=== PATIENT | female | born 1980 | race Caucasian/White ===

== ENCOUNTER → 2020-03-07 12:06 | Outpatient (BNVA) | payer OTHER, SELFPAY | PROVIDERS: Family Provider Family Medicine; Visit Provider Nurse Practitioner Family | DX: Z20.828 Contact with and (suspected) exposure to other viral communicable diseases (principal) | CPT/HCPCS: 87635 ==

== ENCOUNTER 2020-07-11 15:42 | Emergency (ER) | payer OTHER, SELFPAY ==
[2020-07-11 15:56] VITALS: BP 151/122; PULSE 90; RESP 14; TEMP 36.9; O2SAT 99; BMI 28.0
--- NOTE | 2020-07-11 16:17 | XRR_ITS ---
PROCEDURE INFORMATION: Exam: XR Chest, 1 View Exam date and time: 07/11/2020 4:19 PM Age: 40 years old Clinical indication: Dyspnea TECHNIQUE: Imaging protocol: XR of the chest Views: 1 view. COMPARISON: No relevant prior studies available. FINDINGS: Lungs: Unremarkable. No consolidation. Pleural spaces: Unremarkable. No pleural effusion. No pneumothorax. Heart/Mediastinum: Unremarkable. No cardiomegaly. Bones/joints: No acute abnormality. XR/XR chest 1V portable [id number] IMPRESSION: No acute findings.
--- NOTE | 2020-07-11 16:31 | W.ED.GENADLT ---
HPI - General Adult General: Chief complaint: General Medical Stated complaint: sob/dizziness Time Seen by Provider: 07/11/20 16:05 History of Present Illness: HPI narrative: The patient is a 40-year-old female who comes to the ER complaining of weakness and dizziness as if she is dehydrated. She has been suffering from diarrhea for the past several days. The first couple of days it was bloody and the blood has since stopped but she continues to have diarrhea. She says when she stands up she gets lightheaded. Also intermittently she has some palpitations. Her heart rate on arrival is in the 90s. She also complains of intermittent shortness of breath during these times. Associated symptoms: Reports dyspnea and palpitations; Deny chest pain, confusion, headache(s), nausea, rash or vomiting Review of Systems General: Reports: 10 or more systems reviewed and unremarkable except in HPI and below Const: Denies: fatigue Eyes: Denies: change in vision, blurry vision or eye redness ENMT: Denies: throat pain, swelling of lips/tongue, ear or mastoid pain or nasal congestion Card: Reports: palpitations; Denies: chest pain, irregular heart rhythm, edema, dyspnea on exertion or orthopnea Resp: Reports: dyspnea; Denies: productive cough or non-productive cough GI: Reports: diarrhea; Denies: abdominal pain, nausea, vomiting or GI cramping : Denies: flank pain, difficulty voiding, urinary frequency or urinary urgency Musc: Denies: neck pain, back pain, extremity pain, joint pain, joint redness, limited range of motion or muscle weakness Skin/Breast: Denies: rash, pruritus, erythema, skin pain or skin tenderness Neuro: Reports: dizziness; Denies: headache(s), numbness in extremities, weakness in extremities, sensory changes, difficulty walking, confusion or Slurred speech present Psych: Denies: anxiety or depression Endo: Denies: polyuria All/Imm: Denies: urticaria, throat swelling or tongue swelling PFSH ED PFSH: Family History (Updated 03/19/20 @ 12:21 by ROWDY Neri) Mother CAD (coronary artery disease) Social History (Updated 03/19/20 @ 12:22 by ROWDY Neri) Smoking and tobacco status: never smoked Alcohol intake: never Adopted: No Caregiver/support person: No Lives independently: No Household members: spouse Marital status: Current occupational status: employed Physical Exam Const: COMMON NORMALS: no acute distress, average body habitus, patient oriented x3, no limitations, healthy appearing, alert and well nourished GENERAL APPEARANCE: cooperative, comfortable, well kempt and well developed ORIENTATION/CONSCIOUSNESS: Yes awake, Yes oriented to person, Yes oriented to place and Yes oriented to time HENMT: COMMON NORMALS: normocephalic, external ears normal and Normal external nose present HEAD & SCALP: normal to inspection and normocephalic NOSE: Normal external nose present EXTERNAL EAR: Yes external ears normal MOUTH: Normal oral and palatal mucosa present THROAT: posterior oropharynx normal Eye: COMMON NORMALS: Equal, round and reactive pupils present and EOMs intact bilaterally GENERAL EYE: appearance normal, both eyes and all related structures PUPIL: Yes Equal, round and reactive pupils present Neck/C-Spine: COMMON NORMALS: full ROM, no lymphadenopathy, no meningeal signs and no JVD GENERAL: Yes normal visual inspection Lymph: LYMPHATIC: no lymphadenopathy noted Chest: COMMONS NORMALS: normal inspection of the chest and normal palpation of entire chest wall Resp: COMMON NORMALS: normal respiratory effort, No retractions, No use of accessory muscles, clear to auscultation bilaterally and percussion normal EFFORT & INSPECTION: Yes able to speak in complete sentences AUSCULTATION: clear to auscultation bilaterally PERCUSSION: percussion normal Cardio: COMMON NORMALS: no JVD, regular rate, regular rhythm, S1 normal heart sound present, S2 normal heart sound present and Peripheral pulses 2+ throughout RATE: regular rate RHYTHM: regular rhythm HEART SOUNDS: S1 normal heart sound present and S2 normal heart sound present PERIPHERAL PULSES: Peripheral pulses 2+ throughout GI: COMMON NORMALS: Normal to inspection, nondistended, normoactive bowel sounds present, Soft to palpation, non-tender and no masses INSPECTION: Yes normal to inspection PALPATION: Yes Soft to palpation : COMMON NORMALS: Yes no CVA tenderness BLADDER/KIDNEY EXAM: Yes no CVA tenderness Back/Pelvis: COMMON NORMALS: no CVA tenderness, thoracic and lumbar spine normal to inspection, no thoracic nor lumbar tenderness and thoraco-lumbar ROM normal Extremity: COMMON NORMALS: normal to inspection, full ROM, capillary refill normal, no joint enlargement and no pedal edema GENERAL: Yes normal exam except as noted Neuro: COMMON NORMALS: patient oriented x3, CN's II-XII intact bilaterally, moves all extremities, no focal motor deficits, no sensory deficits noted and gait normal SENSORIUM/ORIENTATION: Yes alert, Yes oriented to person, Yes oriented to place and Yes oriented to time MENINGEAL SIGNS: Yes no meningeal signs Psych: COMMON NORMALS: mental status grossly normal, Normal thought process present, cooperative, normal affect and speech normal APPEARANCE: Yes well kempt ATTITUDE: Yes calm SPEECH: Yes normal speech THOUGHT PROCESS: Normal thought process present Skin: COMMON NORMALS: no rashes or lesions noted GENERAL SKIN EXAM: no rashes or lesions noted Course Vital Signs: Vital signs: Vital Signs Temperature 98.4 F 07/11/20 15:56 Pulse Rate 87 07/11/20 19:16 Respiratory Rate 18 07/11/20 19:16 Blood Pressure 133/82 07/11/20 19:16 Pulse Oximetry 96 07/11/20 19:16 MDM - General Adult MDM Narrative: Medical decision making narrative: The patient came in complaining of multiple different symptoms. She was given IV fluids and Zofran and her symptoms did improve. It is likely that she was dehydrated and has an enteritis which she is recovering from. She has follow-up with her primary care physician in a few days and recommended she follow-up at that time. ER with worsening symptoms Lab Data: Labs: Lab Results 07/11/20 07/11/20 07/11/20 Range/Units 17:10 17:10 17:10 WBC 9.0 (4.0-10.0) 10^3/ uL RBC 4.42 (4.1-5.3) 10^6/u L Hgb 13.6 (11.5-15.3) g/dL Hct 39.8 (37.0-47.0) % MCV 90.0 (81-99) fL MCH 30.8 (28.0-34.0) pg MCHC 34.2 (30.0-36.0) g/dL RDW 12.2 (12.1-15.1) % Plt Count 293 (130-400) 10^3/c mm MPV 9.1 (7.4-10.4) fL Neut % (Auto) 51.3 % Lymph % (Auto) 34.9 % [place] % (Auto) 6.3 % Eos % (Auto) 5.6 % Baso % (Auto) 1.2 % Neut # (Auto) 4.60 (1.8-7.7) 10^3/u L Lymph # (Auto) 3.1 (0.8-4.8) 10^3/u L [place] # (Auto) 0.6 (0.2-0.9) 10^3/u L Eos # (Auto) 0.5 (0.0-0.8) 10^3/u L Baso # (Auto) 0.1 (0.0-0.1) 10^3/u L Nucleated RBC % (a uto) 0 % Nucleated RBCs # 0.0 /100WBC D-Dimer <= 0.27 (0-0.59) ug/mIFE U Sodium 142 (136-145) mmol/L Potassium 3.4 L (3.5-5.1) mmol/L Chloride 107 (98-107) mmol/L Carbon Dioxide 23 (22-29) mmol/L Anion Gap 15.4 (5-19) BUN 11 (6-20) mg/dL Creatinine 0.8 (0.5-0.9) mg/dL GFR Calculation 79.9 L (90-130) mL/min Glucose 88 (65-115) mg/dL Calculated Osmolal ity 293 (285-295) mOsm/k g Calcium 9.2 (8.5-10.5) mg/dL Total Bilirubin 0.3 (0.15-1.2) mg/dL AST 17 (0-32) U/L ALT 19 (0-33) U/L Alkaline Phosphata se 59 (35-105) IU/L Total Protein 7.3 (6.6-8.7) g/dL Albumin 4.4 (3.5-5.2) g/dL Globulin 2.9 (1.3-4.6) g/dL Lipase 50 (13-60) U/L HCG, Qual (Negative) Urine Color (Yellow) Urine Appearance (CLEAR) Urine pH (5-7) Ur Specific Gravit y (1.005-1.030) Urine Protein (Negative) Urine Glucose (UA) (Normal) Urine Ketones (Negative) Urine Blood (Negative) Urine Nitrate (Negative) Urine Bilirubin (Negative) Prot Sulfosalicyli c Acd (Negative) Urine Urobilinogen (Negative) mg/dL Ur Leukocyte Rekha ase (Negative) Urine RBC (0-2) /hpf Urine WBC (0-5) /hpf Ur Squamous Epith Cells (0-5) /hpf Amorphous Sediment /hpf Urine Bacteria (NONE) /hpf 07/11/20 07/11/20 Range/Units 17:10 17:39 WBC (4.0-10.0) 10^3/ uL RBC (4.1-5.3) 10^6/u L Hgb (11.5-15.3) g/dL Hct (37.0-47.0) % MCV (81-99) fL MCH (28.0-34.0) pg MCHC (30.0-36.0) g/dL RDW (12.1-15.1) % Plt Count (130-400) 10^3/c mm MPV (7.4-10.4) fL Neut % (Auto) % Lymph % (Auto) % [place] % (Auto) % Eos % (Auto) % Baso % (Auto) % Neut # (Auto) (1.8-7.7) 10^3/u L Lymph # (Auto) (0.8-4.8) 10^3/u L [place] # (Auto) (0.2-0.9) 10^3/u L Eos # (Auto) (0.0-0.8) 10^3/u L Baso # (Auto) (0.0-0.1) 10^3/u L Nucleated RBC % (a uto) % Nucleated RBCs # /100WBC D-Dimer (0-0.59) ug/mIFE U Sodium (136-145) mmol/L Potassium (3.5-5.1) mmol/L Chloride (98-107) mmol/L Carbon Dioxide (22-29) mmol/L Anion Gap (5-19) BUN (6-20) mg/dL Creatinine (0.5-0.9) mg/dL GFR Calculation (90-130) mL/min Glucose (65-115) mg/dL Calculated Osmolal ity (285-295) mOsm/k g Calcium (8.5-10.5) mg/dL Total Bilirubin (0.15-1.2) mg/dL AST (0-32) U/L ALT (0-33) U/L Alkaline Phosphata se (35-105) IU/L Total Protein (6.6-8.7) g/dL Albumin (3.5-5.2) g/dL Globulin (1.3-4.6) g/dL Lipase (13-60) U/L HCG, Qual Negative (Negative) Urine Color Yellow (Yellow) Urine Appearance Cloudy (CLEAR) Urine pH 8 H (5-7) Ur Specific Gravit y 1.015 (1.005-1.030) Urine Protein Neg (Negative) Urine Glucose (UA) Norm (Normal) Urine Ketones Negative (Negative) Urine Blood Neg (Negative) Urine Nitrate Negative (Negative) Urine Bilirubin Neg (Negative) Prot Sulfosalicyli c Acd Negative (Negative) Urine Urobilinogen Norm (Negative) mg/dL Ur Leukocyte Rekha ase Negative (Negative) Urine RBC None (0-2) /hpf Urine WBC None (0-5) /hpf Ur Squamous Epith Cells 0-4 H (0-5) /hpf Amorphous Sediment 2+ /hpf Urine Bacteria Trace (NONE) /hpf Discharge Plan Discharge Patient Disposition: Home Clinical Impression: Acute dehydration, Nausea Condition: Stable Prescriptions: New ondansetron 4 mg tablet,disintegrating 4 mg PO Q8H 5 Days Qty: 15 RF: 0 No Action topiramate 50 mg tablet 50 mg PO BID RF: 0 labetalol 100 mg tablet 100 mg PO BID RF: 0 diphenhydramine HCl [Benadryl] 25 mg capsule 25 mg PO TID PRN (Reason: Allergic Reaction) RF: 0 Discharge Orders: Discharge ED (Routine); Ordered 07/11/20 Ordered By: Andreas Mchugh Referrals: Bret Gil DO [Primary Care Provider] - Discharge Diet: Advance as tolerated Discharge Activity: Resume usual activity Patient Instructions: Dehydration (ED) Activity Restrictions/Additional Instructions: The cause of your symptoms are unclear but we have given you fluid and nausea medicine and your symptoms have slightly improved in the ER. Please follow-up with your primary care physician in a few days to monitor improvement of your symptoms and return to the ER with worsening symptoms. Take Zofran to help you with your nausea. Coding Level of Care Code ED Account Analyst for Stephanie Fwd Exam Comprehensive
--- NOTE | 2020-07-11 16:47 | ECG_ITS ---
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 Measurements Intervals [place] Rate: 81 P: 61 PA: 146 QRS: 38 QRSD: 92 T: 44 QT: 369 QTc: 428 Interpretive Statements SINUS RHYTHM No previous ECG available for comparison Electronically Signed On 07-12-2020 17:04:18 LOOP MACHINE OPERATOR by Oli Crespo M.D. [id number]
[2020-07-11] MEDS: sodium chloride 0.9% 1,000 ML 999 ML IV (17:28)
[2020-07-11] MEDS: ondansetron 2 mg/ML SDV 2 mL 4 MG IVP (17:28)
[2020-07-11 17:41] LABS: Basophils # 0.1 10^3/uL (0.0-0.1); Basophils % 1.2 %; Eosinophils # 0.5 10^3/uL (0.0-0.8); Eosinophils % 5.6 %; Hematocrit 39.8 % (37.0-47.0); Hemoglobin 13.6 g/dL (11.5-15.3); Lymphocytes # 3.1 10^3/uL (0.8-4.8); Lymphocytes % 34.9 %; Mean Corpuscular HGB Conc 34.2 g/dL (30.0-36.0); Mean Corpuscular Hemoglobin 30.8 pg (28.0-34.0); Mean Platelet Volume 9.1 fL (7.4-10.4); Monocytes # 0.6 10^3/uL (0.2-0.9); Monocytes % 6.3 %; Neutrophils % 51.3 %; Nucleated Red Blood Cells % 0 %; Platelet Count 293 10^3/cmm (130-400); Red Blood Count 4.42 10^6/uL (4.1-5.3); Red Cell Distribution Width 12.2 % (12.1-15.1)
[2020-07-11 17:54] LABS: HCG Qualitative Urine. Negative (Negative)
[2020-07-11 17:56] LABS: D Dimer <= 0.27 ug/mIFEU (0-0.59)
[2020-07-11 17:58] LABS: Add Urine Microscopic? YES; Bilirubin Urine Neg (Negative); Blood Urine Neg (Negative); Glucose Urine UA Norm (Normal); Ketones Urine Negative (Negative); Leukocyte Esterase Urine Negative (Negative); Nitrate Urine Negative (Negative); Protein Urine Neg (Negative); Specific Gravity, Urine 1.015 (1.005-1.030); Sulfosalicylic Acid Urine Negative (Negative); Urine Appearance Cloudy (CLEAR); Urine Color Yellow (Yellow); Urobilinogen Urine Norm (Negative); pH Urine 8 (5-7)
[2020-07-11 18:00] LABS: Alanine Aminotransferase 19 U/L (0-33); Albumin Level 4.4 g/dL (3.5-5.2); Alkaline Phosphatase 59 IU/L (35-105); Aspartate Amino Transferase 17 U/L (0-32); Blood Urea Nitrogen 11 mg/dL (6-20); Calcium 9.2 mg/dL (8.5-10.5); Carbon Dioxide 23 mmol/L (22-29); Chloride 107 mmol/L (98-107); Globulin 2.9 g/dL (1.3-4.6); Glomerular Filtration Rate 79.9 mL/min (90-130); Glucose 88 mg/dL (65-115); Lipase 50 U/L (13-60); Osmolality Calculated 293 mOsm/kg (285-295); Sodium 142 mmol/L (136-145); Total Bilirubin 0.3 mg/dL (0.15-1.2); Total Protein 7.3 g/dL (6.6-8.7)
[2020-07-11 18:00] LABS: Add Urine Culture? No; Amorphous Sediment Urine 2+ /hpf; Bacteria Urine TRACE /hpf; Squamous Epithelial Cell Urine 0-4 /hpf (0-5)
[2020-07-11 18:01] LABS: Anion Gap 15.4 (5-19)
[2020-07-11 18:02] LABS: Potassium 3.4 mmol/L (3.5-5.1)
[2020-07-11 19:16] VITALS: BP 133/82; PULSE 87; RESP 18; O2SAT 96
[2020-07-11 19:47] VITALS: BP 139/87; PULSE 78; RESP 22; O2SAT 99
== END 2020-07-11 19:45 | disposition home or self-care (01) ==
PROVIDERS: Emergency Provider Family Medicine; PCP Family Medicine
DX: E86.0 Dehydration (principal); R11.0 Nausea
CPT/HCPCS: 12345; 71045; 80053; 81001; 81025; 83690; 85025; 85378; 93005; 96361; 96374; 99282; 99283; J2405; J7030

== ENCOUNTER → 2021-12-08 12:16 | Outpatient (BNVA) | payer OTHER, SELFPAY | PROVIDERS: PCP Family Medicine; Visit Provider Family Medicine | DX: Z00.00 Encounter for general adult medical examination without abnormal findings (principal) | CPT/HCPCS: 80053; 80061 ==

== ENCOUNTER → 2024-04-15 10:05 | Outpatient (BNVA) | payer OTHER, SELFPAY | PROVIDERS: PCP Family Medicine; Visit Provider Family Medicine | DX: Z00.00 Encounter for general adult medical examination without abnormal findings (principal); G43.119 Migraine with aura, intractable, without status migrainosus; E03.9 Hypothyroidism, unspecified | CPT/HCPCS: 80053; 80061; 83036; 84443; 85025 ==

== ENCOUNTER → 2025-02-20 11:37 | Outpatient (BNVA) | payer OTHER, SELFPAY | PROVIDERS: PCP Family Medicine; Visit Provider Family Medicine | DX: Z00.00 Encounter for general adult medical examination without abnormal findings (principal); G43.119 Migraine with aura, intractable, without status migrainosus; M79.10 Myalgia, unspecified site; R53.83 Other fatigue; M25.50 Pain in unspecified joint; E03.9 Hypothyroidism, unspecified | CPT/HCPCS: 80053; 82306; 82672; 82785; 83036; 84144; 84403; 84443; 85025; 86001; 86003; 86140 ==

== ENCOUNTER 2025-05-01 07:54 | Emergency (ER) | payer OTHER, SELFPAY ==
--- NOTE | 2025-05-01 07:58 | CT_ITS ---
WS: [id number] CT HEAD TECHNIQUE: Noncontrast CT of the head obtained from the skullbase to the vertex. CLINICAL INFORMATION: Symptoms of acute stroke COMPARISON: None. DLP: [address] scans at [facility] use at least one of these dose optimization techniques: automated exposure control; mA and/or kV adjustment per patient size (includes targeted exams where dose is matched to clinical indication); or iterative reconstruction. FINDINGS: No evidence of intracranial hemorrhage or mass effect. Ventricular system and basal cisterns are patent. No extra-axial fluid collections. No evidence of mass or mass effect. Normal ryan-white differentiation. Paranasal sinuses and mastoid air cells are well aerated. .Normal visualized soft tissues. CT/CT head thrombolytic [id number] IMPRESSION: 1. No evidence of intracranial hemorrhage or mass effect. 2. No acute intracranial findings. Notified Moiz Em DO at 05/01/2025 8:34 AM.
--- NOTE | 2025-05-01 07:58 | ECG_ITS ---
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 Measurements Intervals [place] Rate: 68 P: 45 DE: 137 QRS: 11 QRSD: 90 T: 32 QT: 392 QTc: 417 Interpretive Statements SINUS RHYTHM No previous ECG available for comparison Electronically Signed On 05-03-2025 14:15:47 VISUAL INSPECTOR by Stella Morrissey M.D. [id number] [email or web address]
[2025-05-01 08:01] VITALS: BP 173/131; PULSE 73; RESP 20; TEMP 36.4; O2SAT 97
[2025-05-01 08:31] LABS: Hematocrit 48.1 % (36-47); Hemoglobin 16.40 g/dL (11.27-16.99); Mean Corpuscular HGB Conc 34.1 g/dL (30-55); Mean Corpuscular Hemoglobin 30.6 pg (27-33); Mean Corpuscular Volume 89.7 fl (85-98); Nucleated Red Blood Cells % 0 %; Platelet Count 324 10^3/cmm (157-399); Red Blood Count 5.36 10^6/uL (3.85-5.65); White Blood Count 9.27 10^3/uL (3.29-11.43)
--- NOTE | 2025-05-01 08:36 | W.ED.ABDPA2 ---
HPI - Abdominal Pain General: Chief Complaint: Abdominal Pain Stated Complaint: Stroke like Symptoms Time Seen by Provider: 05/01/25 08:04 History of Present Illness: 45-year-old female presents emergency room initial complaint when I talked to her is that she has had a headache for 4 days and then overnight began to have more abdominal pain with a lot of nausea and vomiting has not had any hematemesis or coffee-ground emesis. Since the vomiting started she also had some chest discomfort. Patient does have a history of migraines in the past. No fevers sweats or chills no focal abdominal pain. She denies dysuria urgency or frequency. She is on semaglutide. She has had migraines in the past she took a sumatriptan yesterday for it has not had any improvement. Associated Symptoms: Denies chills, dysuria and fever(s) Related Data Home Medications ?Medication ?Instructions ?Recorded ?Confirmed diphenhydramine HCl 25 mg capsule 25 mg PO TID PRN Allergic Reaction 03/07/20 05/01/25 (Benadryl) fluticasone propionate 50 2 spray intranasal DAILY PRN sinus 05/01/25 05/01/25 mcg/actuation nasal congestion spray,suspension promethazine 25 mg tablet 25 mg PO Q6H PRN Nausea 05/01/25 05/01/25 Previous Rx's ?Medication ?Instructions ?Recorded labetalol 100 mg tablet 100 mg PO BID #180 tabs 10/06/24 sumatriptan succinate 50 mg tablet See Rx Instructions PO .COMPLEX 01/05/25 #20 tabs semaglutide 0.25 mg or 0.5 mg (2 0.5 mg (0.736 mL) SUBCUT .qweek #3 02/20/25 mg/3 mL) subcutaneous pen injector mL (Ozempic) ondansetron 8 mg disintegrating 8 mg PO Q8H PRN nausea and 03/10/25 tablet vomiting 5 days #15 tabs Allergies Allergy/AdvReac Type Severity Reaction Status Date / Time sulfamethoxazole (From Allergy Intermediate nausea/vomi Verified 05/07/25 11:34 Bactrim) ting trimethoprim (From Bactrim) Allergy Intermediate nausea/vomi Verified 05/07/25 11:34 ting Review of Systems Const: Denies: fever(s) or chills Card: Denies: chest pain Resp: Denies: dyspnea GI: Denies: abdominal pain : Denies: dysuria, urinary frequency or urinary urgency Musc: Denies: neck pain or back pain Skin/Breast: Denies: rash PFSH ED PFSH: Medical History Interstitial cystitis HISTORY OF HYDRODISTENSION X2 Recurrent UTI Anxiety HTN (hypertension) Migraine headache Surgical History Hx of tonsillectomy Family History Mother CAD (coronary artery disease) Social History Smoking and tobacco/nicotine status: never used tobacco/nicotine Alcohol intake: never Substance/Drug Use: never Adopted: No Caregiver/support person: No Lives independently: No Household members: spouse Marital status: Current occupational status: employed Physical Exam Const: COMMON NORMALS: no acute distress GENERAL APPEARANCE: cooperative and comfortable ORIENTATION/CONSCIOUSNESS: Yes awake, Yes oriented to person, Yes oriented to place and Yes oriented to time HENMT: COMMON NORMALS: normocephalic, atraumatic and hearing grossly normal bilaterally HEAD & SCALP: normocephalic and atraumatic Resp: COMMON NORMALS: normal respiratory effort, No retractions, No use of accessory muscles and clear to auscultation bilaterally AUSCULTATION: clear to auscultation bilaterally Cardio: COMMON NORMALS: regular rate, regular rhythm and No murmurs present (Cardio) RATE: regular rate RHYTHM: regular rhythm GI: COMMON NORMALS: Soft to palpation and No hepatosplenomegaly present AUSCULTATION: Yes normoactive bowel sounds PALPATION: Yes Soft to palpation, No Tenderness to palpation present (GI), No Guarding due to palpation present (GI) and Yes No hepatosplenomegaly present Extremity: COMMON NORMALS: normal to inspection, capillary refill normal, no clubbing, cyanosis or edema, no calf tenderness and no pedal edema Neuro: SENSORIUM/ORIENTATION: Yes oriented to person, Yes oriented to place and Yes oriented to time OTHER: No focal neurologic deficits no strength asymmetries in the extremities no ataxia no facial asymmetry Skin: COMMON NORMALS: no rashes or lesions noted GENERAL SKIN EXAM: no rashes or lesions noted Course Vital Signs: Vital signs: Vital Signs Temperature 97.6 F 05/01/25 08:01 Pulse Rate 88 05/01/25 11:46 Respiratory Rate 16 05/01/25 11:46 Blood Pressure 146/100 05/01/25 11:46 Pulse Oximetry 98 05/01/25 11:46 Oxygen Delivery Me thod Room Air 05/01/25 11:11 MDM - Abdominal Pain Medical Decision Making Medical decision making Social determinants: None I reviewed the patient's medical record. I reviewed the patient's current home meds Alternate historians: None Differential diagnosis tension headache, migraine headache, intracranial bleed [place] subarachnoid hemorrhage, subdural hematoma, cystitis Lab Review: No leukocytosis. Glucose at 177 remainder of her chemistries are normal beta-hCG negative urine shows signs of cystitis drug screen negative Imaging: CT head negative Assessment of risk: Level of risk: Low Hospitalization considerations: On initial evaluation patient would be considered for hospitalization depending on workup for secondary causes of migraine including intracranial bleed subarachnoid hemorrhage subdural. These were all negative and she was not hospitalized Reexamination: Headache improved with medications given. Assessment and plan: Patient is improved after fluids and medications for headache will discharge patient home. She was given initial dose ceftriaxone for cystitis discharged home on oral antibiotics have her follow-up with her primary care doctor Lab Data 05/01/25 08:25 05/01/25 08:25 Labs/Radiology: Radiology Impressions Head CT 05/01/25 07:58 IMPRESSION: 1. No evidence of intracranial hemorrhage or mass effect. 2. No acute intracranial findings. Notified Moiz Em DO at 05/01/2025 8:34 AM. Laboratory Results WBC 9.27 10^3/uL (3.29-11.43) 05/01/25 08:25 RBC 5.36 10^6/uL (3.85-5.65) 05/01/25 08:25 Hgb 16.40 g/dL (11.27-16.99) 05/01/25 08:25 Hct 48.1 % (36-47) H 05/01/25 08:25 MCV 89.7 fl (85-98) 05/01/25 08:25 MCH 30.6 pg (27-33) 05/01/25 08:25 MCHC 34.1 g/dL (30-55) 05/01/25 08:25 RDW 11.9 % (12.1-15.1) L 05/01/25 08:25 Plt Count 324 10^3/cmm (157-399) 05/01/25 08:25 MPV 8.8 fL (7.4-10.4) 05/01/25 08:25 Neut % (Auto) 73.5 % 05/01/25 08:25 Lymph % (Auto) 19.5 % 05/01/25 08:25 [place] % (Auto) 3.5 % 05/01/25 08:25 Eos % (Auto) 1.8 % 05/01/25 08: Baso % (Auto) 0.6 % 05/01/25: Neut # (Auto) 6.81 10^3/uL (1.8-7.7) 05/01/25 08: Lymph # (Auto) 1.8 10^3/uL (0.8-4.8) 05/01/25 08:25 [place] # (Auto) 0.3 10^3/uL (0.2-0.9) 05/01/25 08:25 Eos # (Auto) 0.2 10^3/uL (0.0-0.8) 05/01/25 08:25 Baso # (Auto) 0.1 10^3/uL (0.0-0.1) 05/01/25 08:25 Nucleated RBC % (auto) 0 % 05/01/25 08: Nucleated RBCs # 0.0 /100WBC 05/01/25 08:25 PT 12.70 SECONDS (12.1-14.9) 05/01/25 08:25 INR 0.89 (0.8-1.2) 05/01/25 08:25 APTT 23.9 SECONDS (23.9-36.7) 05/01/25 08:25 Sodium 138 mmol/L (136-145) 05/01/25 08:25 Potassium 3.8 mmol/L (3.5-5.1) 05/01/25 08:25 Chloride 102 mmol/L (98-107) 05/01/25 08:25 Carbon Dioxide 27 mmol/L (22-29) 05/01/25 08:25 Anion Gap 12.8 (5-19) 05/01/25 08:25 BUN 11 mg/dL (6-20) 05/01/25 08:25 Creatinine 0.9 mg/dL (0.5-0.9) 05/01/25 08:25 GFR Calculation 68.0 mL/min (90-130) L 05/01/25 08:25 Glucose 177 mg/dL (65-115) H 05/01/25 08:25 POC Glucose 143 mg/dL (70-110) H 05/01/25 08:40 Calculated Osmolality 290 mOsm/kg (285-295) 05/01/25 08:25 Calcium 9.8 mg/dL (8.5-10.5) 05/01/25 08:25 Total Bilirubin 0.7 mg/dL (0.15-1.2) 05/01/25 08:25 AST 18 U/L (0-32) 05/01/25 08:25 ALT 24 U/L (0-33) 05/01/25 08:25 Alkaline Phosphatase 79 U/L (35-105) 05/01/25 08:25 Total Protein 7.6 g/dL (6.6-8.7) 05/01/25 08:25 Albumin 4.8 g/dL (3.5-5.2) 05/01/25 08:25 Globulin 2.8 g/dL (1.3-4.6) 05/01/25 08:25 HCG, Qual Negative (Negative) 05/01/25 08:45 Urine Color Dark yellow (Yellow) A 05/01/25 08:36 Urine Appearance Cloudy (CLEAR) A 05/01/25 08:36 Urine pH 6.0 (5-7) 05/01/25 08:36 Ur Specific [place] 1.026 (1.005-1.030) 05/01/25 08:36 Urine Protein 1+ (Negative) A 05/01/25 08:36 Urine Glucose (UA) Negative (Normal) 05/01/25 08:36 Urine Ketones Trace (Negative) 05/01/25 08:36 Urine Blood Negative (Negative) 05/01/25 08:36 Urine Nitrate Negative (Negative) 05/01/25 08:36 Urine Bilirubin 1+ (Negative) H 05/01/25 08:36 Urine Urobilinogen 1.0 mg/dL (Negative) 05/01/25 08:36 Ur Leukocyte Esterase 1+ (Negative) A 05/01/25 08:36 Urine RBC 3-5 /hpf (0-2) 05/01/25 08:36 Urine WBC 21-50 /hpf (0-5) H 05/01/25 08:36 Ur Squamous Epith Cells 21-50 /hpf (0-5) H 05/01/25 08:36 Amorphous Sediment Not Reportable 05/01/25 08:36 Urine Bacteria 3+ /hpf (NONE) H 05/01/25 08:36 Hyaline Casts 1.21 /lpf 05/01/25 08:36 Urine Opiates Screen Negative ng/mL (Negative) 05/01/25 08:36 Ur Barbiturates Screen Negative ng/mL (Negative) 05/01/25 08:36 Ur Phencyclidine Scrn Negative ng/mL (Negative) 05/01/25 08:36 Ur Amphetamines Screen Negative ng/mL (Negative) 05/01/25 08:36 U Benzodiazepines Scrn Negative ng/mL (Negative) 05/01/25 08:36 Urine Cocaine Screen Negative ng/mL (Negative) 05/01/25 08:36 U Marijuana (THC) Screen Negative ng/mL (Negative) 05/01/25 08:36 All radiology interpretation(s) finalized by discharge EKG Data EKG 1: I personally reviewed and interpreted this EKG as follows: Interpretation: EKG 05/01/2025 8:25 AM sinus rhythm rate of 68. OH interval 137 QTc [address] changes noted. No EKG available for comparison Discharge Plan Discharge Patient Disposition: Home Clinical Impression: Migraine headache, Cystitis Condition: Stable Prescriptions: No Action diphenhydramine HCl [Benadryl] 25 mg capsule 25 mg PO TID PRN (Reason: Allergic Reaction) Ozempic 0.25 mg or 0.5 mg (2 mg/3 mL) pen injector 0.5 mg SUBCUT .qweek Qty: 3 3RF labetalol 100 mg tablet 100 mg PO BID Qty: 180 3RF sumatriptan succinate 50 mg tablet See Rx Instructions PO .COMPLEX Qty: 20 3RF Rx Instructions: Take 1 tablet at onset of headache; if no relief may repeat 1 tablet after at least 2 hrs; max = 4 tabs/24 hr ondansetron 8 mg tablet,disintegrating 8 mg PO Q8H PRN (Reason: nausea and vomiting) 5 Days Qty: 15 0RF promethazine 25 mg tablet 25 mg PO Q6H PRN (Reason: Nausea) fluticasone propionate 50 mcg/actuation spray,suspension 2 spray intranasal DAILY PRN (Reason: sinus congestion) Rx Instructions: administer into each nostril Discharge Orders: Discharge ED (Routine); Ordered 05/01/25 Ordered By: Moiz Em Referrals: Bret Gil, [Primary Care Provider, Family Practice] Discharge Diet: Usual diet Discharge Activity: Resume usual activity Patient Instructions: Abdominal Pain (ED), Opioid Safety, Pain Management, Patient Portal & [place] Instructions Activity Restrictions/Additional Instructions: Thank you for choosing [facility] [place] for your healthcare needs today. It is very important that you follow up as instructed or that you return to the Emergency Department should you have concerns or if your condition changes or worsens in any way. Emergency department visits are focused on emergent conditions, in some cases you may require further evaluation on an outpatient basis. You are seen in the emergency room with complaints of headache and abdominal discomfort. Your headache improved with the medications we gave. Urine did show some signs infection and remainder of your laboratory test was normal your EKG was normal. Will discharge you home with oral antibiotics you are given initial dose of antibiotics in the emergency room. Follow-up with your primary care doctor. (Please note that included in your discharge packet is information concerning opioid safety and pain management. This information is given to all patients were discharged from the ER regardless of their discharge diagnosis or the medicines they usually take or are prescribed.) Print Language: Amharic Coding Level of Care Code ED Industrial Accountant for Stephanie Herrera
[2025-05-01 08:43] LABS: INR 0.89 (0.8-1.2); Prothrombin Time 12.70 SECONDS (12.1-14.9)
[2025-05-01 08:44] LABS: Partial Thromboplastin Time 23.9 SECONDS (23.9-36.7)
[2025-05-01 08:45] LABS: Glucose Urine UA Negative (Normal); Nitrate Urine Negative (Negative); Specific Gravity, Urine 1.026 (1.005-1.030)
[2025-05-01 08:48] LABS: Alanine Aminotransferase 24 U/L (0-33); Albumin Level 4.8 g/dL (3.5-5.2); Alkaline Phosphatase 79 U/L (35-105); Anion Gap 12.8 (5-19); Aspartate Amino Transferase 18 U/L (0-32); Blood Urea Nitrogen 11 mg/dL (6-20); Calcium 9.8 mg/dL (8.5-10.5); Carbon Dioxide 27 mmol/L (22-29); Chloride 102 mmol/L (98-107); Globulin 2.8 g/dL (1.3-4.6); Glucose 177 mg/dL (65-115); Osmolality Calculated 290 mOsm/kg (285-295); Potassium 3.8 mmol/L (3.5-5.1); Sodium 138 mmol/L (136-145); Total Protein 7.6 g/dL (6.6-8.7)
[2025-05-01 08:50] LABS: Add Urine Microscopic? YES
[2025-05-01 09:01] LABS: PCP Screen Urine Negative (Negative)
[2025-05-01 09:09] VITALS: BP 191/124; PULSE 98; O2SAT 94
[2025-05-01 11:05] LABS: HCG, Serum Qual Negative (Negative)
[2025-05-01] MEDS: labetalol 5 mg/mL SDV 20mL 10 MG IVP (11:06)
[2025-05-01] MEDS: cefTRIAXone 1,000 mg SDV 1000 MG IVP (11:09)
[2025-05-01 11:11] VITALS: BP 143/104; PULSE 68; O2SAT 92
[2025-05-01 11:46] VITALS: BP 146/100; PULSE 88; RESP 16; O2SAT 98
== END 2025-05-01 11:47 | disposition home or self-care (01) ==
PROVIDERS: Emergency Provider Family Medicine; PCP Family Medicine
DX: G43.909 Migraine, unspecified, not intractable, without status migrainosus (principal); N30.90 Cystitis, unspecified without hematuria; I10 Essential (primary) hypertension
CPT/HCPCS: 36415; 36416; 70450; 80053; 80306; 81001; 82962; 84703; 85025; 85610; 85730; 87086; 93005; 96361; 96374; 96375; 99285; J0696; J0780; J1885; J3490; J7030

== ENCOUNTER → 2025-05-14 14:56 | Outpatient (BNVA) | payer OTHER, SELFPAY | PROVIDERS: PCP Family Medicine; Visit Provider Family Medicine | DX: Z91.014 Allergy to mammalian meats (principal); G43.819 Other migraine, intractable, without status migrainosus | CPT/HCPCS: 86008 ==